=== PATIENT | male | born 1960 | race Caucasian/White ===

== ENCOUNTER 2016-09-13 | Inpatient (IN) | payer OTHER ==
--- NOTE | ~2016-09-13 | HP ---
Unit #: [id number] #: [id number] Patient: ROXANA MONTANEZ [id number] [place] [address] [id number] MR#: [id number] NAME: ROXANA MONTANEZ ROOM: P209 Age: 56 Sex: M Admission Date: 09/13/2016 : 1960 Attending Physician: Jerman Bean M.D. Admitting Physician: Jerman Bean M.D. Primary Care Physician: Generic Doctor Not In System HISTORY AND PHYSICAL HISTORY OF PRESENT ILLNESS Roxana is a 56 year old, admitted to [address] [place] [address] because of his abuse of alcohol. PAST MEDICAL HISTORY 1. Long history of alcohol abuse. 2. High blood pressure. 3. GERD. 4. Hyperlipidemia. PAST SURGICAL HISTORY Nothing reported. ALLERGIES No known drug allergies. SOCIAL HISTORY He does not smoke, drinks up to three fifths of liquor on a daily basis, and denies illicit drug use. FAMILY HISTORY Medically noncontributory. REVIEW OF SYSTEMS CONSTITUTIONAL: No fever or chills. HEENT: Denies any sore throat, ear pain or runny nose. CARDIOVASCULAR: Denies chest pain, irregular heart rhythm or palpitations. CHEST: Denies shortness of breath or cough. No hemoptysis. GASTROINTESTINAL: Denies nausea, vomiting, diarrhea or chronic constipation. ENDOCRINE: Denies history of increased thirst or urination. No recent significant weight loss or gain. GENITOURINARY: Denies dysuria, frequency, or hematuria. SKIN: Denies any rashes. HEMATOLOGIC: Denies history of increased bleeding or bruising. MUSCULOSKELETAL: Denies any hot, swollen joints. No generalized muscle pain. NEUROLOGIC: Denies problems with vision or speech. No frequent, severe headaches. No numbness, tingling or weakness in any extremities. Denies loss of bladder or bowel control. CURRENT MEDICATIONS 1. Detox protocol 2. Lipitor 10 mg daily Unit #: [id number] #: [id number] Patient: ROXANA MONTANEZ 3. Ibuprofen p.r.n. 4. Protonix 40 mg daily PHYSICAL EXAMINATION GENERAL: Alert, well-nourished, no apparent distress. VITAL SIGNS: Blood pressure 122/64, heart rate 96, respirations 16, and temperature 98.6. WEIGHT: 165. HEIGHT: 5 feet 8 inches. SKIN: Warm and dry without rash or lesion. HEENT: Normocephalic. TMs not viewed. Oral and nasal passages clear. Conjunctivae clear. PERRLA. EOMs intact. Bruised left orbit. The area has started to fade and yellow. NECK: Supple without lymphadenopathy or thyromegaly. HEART: Regular rate and rhythm without murmur. LUNGS: Clear. ABDOMEN: Soft, nontender. : Not done. EXTREMITIES: No evidence of cyanosis, clubbing or edema. Moves all without focal deficit. NEUROLOGICAL: Grossly within normal limits. Cranial Nerves: II: Visual jiang are intact. III, IV AND : Extraocular movements are intact. Pupils are equal, round and reactive to light. V: Facial sensation is grossly normal. VII: Facial movements and expression are normal. VIII: Auditory acuity grossly intact. IX, X: Uvula is midline. Phonation is normal. XI: Patient shrugs shoulders and turns head normally. XII: Tongue protrudes in the midline. Sensory and Motor Function: Sensory and motor sensation is grossly normal. Motor: moves all extremities well. Coordination: Gait is normal. Deep Tendon Reflexes: Intact. IMPRESSION Psychiatric admission. RECOMMENDATIONS Psychiatric, per psychiatrist. MEDICAL I see no contraindications to participating in facility's activities. MEDICAL PROGNOSIS Good. MEDICAL CONDITION Stable. Dictated by... Shiloh Almazan P.A.-C. for Margaret Ortega/lidia TD: 09/14/2016 12:29 JOB #: [id number] Unit #: [id number] #: [id number] Patient: ROXANA MONTANEZ HISTORY AND PHYSICAL Page 1 of 1 X Shiloh Almazan HISTORY AND PHYSICAL
--- NOTE | ~2016-09-13 | PA ---
Unit #: [id number] #: [id number] Patient: ROXANA MONTANEZ [id number] [place] [address] [id number] I MR#: [id number] NAME: ROXANA MONTANEZ ROOM: P209 Age: 56 Sex: M Admission Date: 09/13/2016 : 1960 Date of Assessment: 09/13/2016 Attending Physician: Jerman Bean M.D. Admitting Physician: Jerman Bean M.D. Primary Care Physician: Generic Doctor Not In System PSYCHIATRIC ASSESSMENT INFORMANTS The patient's reliability, fair; chart reliability, good. CHIEF COMPLAINT Alcohol withdrawal. HISTORY OF PRESENT ILLNESS Mr. Walsh is a 56-year-old male, presented with the above-mentioned complaint. The patient reported drinking one-fifth of vodka daily and reported currently having withdrawal symptoms. The patient reported that financial problem, job problems, feeling of hopelessness and worthlessness. The patient reported frequent awakening, sleeping 4 hours. The patient currently homeless. Denied any suicidal or homicidal ideation. Denied any psychotic symptom. Needing inpatient admission at this time for psychiatric stabilization. The patient reported alcohol use. No use of any street drugs. History of sobriety 8 months ago, last period of sobriety 4 years ago. The patient reported history of blackout, withdrawal symptom, but no HIV, hepatitis, or IV drug use. The patient reported withdrawal symptoms such as muscle cramping, poor concentration, sleep problem, tremor, unpleasant dream, poor appetite, restlessness. PAST PSYCHIATRIC HISTORY Remarkable for history of previous treatment for detox, details unknown at this time. FAMILY HISTORY AND SOCIAL HISTORY The patient is currently homeless, poor support system. No history of abuse. No legal problem. MEDICAL HISTORY Remarkable for history of hypertension. Musculoskeletal; muscle strength and tone, no atrophy or abnormal movement. Gait normal. MEDICATION HISTORY None. ALLERGIES No known drug allergies. SUBSTANCE ABUSE HISTORY Please see above. Unit #: [id number] #: [id number] Patient: ROXANA MONTANEZ REVIEW OF SYSTEMS HEENT: Eyes, clear. Ears, nose, mouth, and throat; clear. CARDIOVASCULAR: Unremarkable. RESPIRATORY: Unremarkable. GI: Unremarkable. : Unremarkable. SKIN: Unremarkable. LYMPH NODE: Unremarkable. NEUROLOGIC: Unremarkable. ENDOCRINE: Unremarkable. HEMATOLOGIC: Unremarkable. ALLERGIC/IMMUNOLOGIC: Unremarkable. MUSCULOSKELETAL: Muscle strength and tone, no atrophy or abnormal movement. Gait normal. MENTAL STATUS EXAMINATION CONSTITUTIONAL: Measurement of vital signs; temperature 97.7, pulse 97, respirations 20, blood pressure 122/65. Height 5 feet 8 inches, weight 165 pounds. GENERAL APPEARANCE: The patient dressed casually. The patient did not show any facial deformity. MUSCULOSKELETAL: Please see above. PSYCHIATRIC EXAMINATION Description of speech; regular rate, normal volume, normal articulation, coherent. Description of thought process, goal directed. Description of association, intact. Description of abnormal psychotic thinking; the patient denied any hallucination or delusions, but mood lability. Description of the patient's judgment; concerning everyday activity, poor. Social situation, poor. Concerning psychiatric condition, poor. Complete mental status examination; oriented in time, place, and person. Recent and remote memory, fair. Attention span and concentration, fair. Language, able to name object and repeat phrases. Fund of knowledge, aware of current event and passive vocabulary intact. Mood and affect, sad and dysphoric. Insight and judgment, fair to poor. ASSETS AND LIABILITIES Assets; the patient articulate, able to take care of his ADL. Liability; history of substance abuse, homelessness, poor support system. ADMITTING DIAGNOSES Psychiatric: Alcohol use disorder, severe, F10.20; mood disorder, not otherwise specified, F32.9. Secondary diagnosis: Deferred. Medical diagnosis: Hypertension. Stressors: Psychosocial stressors. PSYCHIATRIC PLAN AND TREATMENT GOAL 1. Advised to admit the patient on the inpatient unit. Provide safe, supportive, and structured environment. 2. Ordered labs; CBC, CMP, UA, and UDS. The patient to start with detox protocol, detox monitoring. Attend all the programing on the inpatient unit with group therapy, individual therapy, chemical dependency group. Treatment goal to attain euthymic mood, gain insight into his problem, and Unit #: [id number] #: [id number] Patient: ROXANA MONTANEZ learn coping skills. DISCHARGE PLAN Plan to stabilize the patient and consider followup in outpatient program. ESTIMATED LENGTH OF STAY 3 to 5 days. Dictated by... Jerman Bean M.D. RINA/daniela TD: 09/14/2016 23:09 JOB #: [id number] PSYCHIATRIC ASSESSMENT Page 1 of 1 X Jerman Bean MD PSYCHIATRIC ASSESSMENT
--- NOTE | ~2016-09-13 | DS ---
Unit #: [id number] #: [id number] Patient: ROXANA MONTANEZ [id number] [place] [address] [id number] MR#: [id number] NAME: ROXANA MONTANEZ ROOM: P209 Age: 56 Sex: M Admission Date: 09/13/2016 : 1960 Discharge Date: 09/15/2016 Attending Physician: Jerman Bean M.D. Primary Care Physician: Generic Doctor Not In System DISCHARGE SUMMARY REASON FOR ADMISSION Alcohol withdrawal. DIAGNOSTIC STUDIES LABORATORY RESULTS: Unremarkable except glucose 149. HOSPITAL COURSE The patient was admitted to inpatient unit on 09/13/2016 and discharged on 09/15/2016. The patient was treated with detox protocol, chemical dependency group, structured milieu, and psychoeducation. The patient was responsive to treatment. Subsequently, the patient was discharged with a plan to follow up in outpatient program. DISCHARGE MEDICATIONS Lipitor 10 mg daily for hyperlipidemia, Claritin 10 mg daily for allergies, Zestril 30 mg daily for hypertension, and Protonix 40 mg daily for GERD. DISCHARGE DIAGNOSES Psychiatric: 1. Alcohol use disorder, severe, F10.20. 2. Mood disorder, not otherwise specified, F32.9. Secondary diagnosis: Deferred. Medical diagnosis: Hypertension. Stressors: Psychosocial stressors. DISCHARGE INSTRUCTIONS The patient is to follow up in outpatient clinic as per social service liaison. CONDITION ON DISCHARGE The patient was pleasant and cooperative. Denied any psychotic symptom or any suicidal ideation. PROGNOSIS Guarded. DIET AND ACTIVITY As tolerated. Dictated by... Unit #: [id number] #: [id number] Patient: ROXANA MONTANEZ Margaret FalkC/daniela TD: 09/24/2016 23:22 JOB #: [id number] DISCHARGE SUMMARY Page 1 of 1 X Jerman Bean MD X DISCHARGE SUMMARY
--- NOTE | ~2016-09-13 | PN ---
Unit #: [id number] #: [id number] Patient: ROXANA MONTANEZ [id number] [facility] [address] [place] [address] [id number] I MR#: [id number] NAME: ROXANA MONTANEZ ROOM: P209 Age: 56 Sex: M Admission Date: 09/13/2016 : 1960 Attending Physician: Jerman Bean M.D. Admitting Physician: Jerman Bean M.D. Primary Care Physician: Generic Doctor Not In System [facility] PROGRESS NOTES DATE 09/14/2016 Here for a consultation followup DISCUSSION Mr. Montanez is a 56-year-old male seen on 09/14/2016. The patient continues to report anxious, nervous, sad, depressed, flat affect. The patient is currently having withdrawal symptoms. Vital signs are 97.7, 97, 20, 122/65. Complete review of systems unremarkable. MENTAL STATUS EXAMINATION General appearance, the patient dressed casually. Attention span and concentration fair. Oriented to time, place and person. Mood and affect sad, dysphoric. Speech monotone. Thought process concrete. The patient denied any thoughts of harming self or others but guarded. Recent and remote memory poor. Insight and judgement poor. DIAGNOSES Alcohol use disorder severe. Mood disorder NOS. ASSESSMENT/PLAN Advise to continue with current treatment on the inpatient unit. If needed consider further adjustment of medication. We will continue to follow, make further adjustments if needed. Dictated by... Margaret Falk/michelle TD: 09/16/2016 00:01 JOB #: [id number] Unit #: [id number] #: [id number] Patient: ROXANA MONTANEZ [facility] PROGRESS NOTES Page 1 of 1 X Jerman Bean MD PROGRESS NOTE
[2016-09-14 09:35] LABS: BASOPHIL% 0.6 % (0-2.5); EOSINOPHIL# 0.1 X10e3 (0-0.7); EOSINOPHIL% 2.3 % (0.0-7.0); HEMATOCRIT 41.7 % (38.0-50.0); HEMOGLOBIN 13.5 gm/dL (13.0-16.0); LYMPHOCYTE# 1.3 X10e3 (1.0-3.5); LYMPHOCYTE% 38.1 % (17.0-45.0); MEAN CELL VOLUME 93.5 FL (83-96); MEAN CORPUSCULAR HEMOGLOBIN 30.4 PG (28-34); MEAN CORPUSCULAR HGB CONC 32.5 g/dL (30-36); MEAN PLATELET VOLUME 7.7 FL (6.5-11.5); MONOCYTE# 0.4 X10e3 (0-1.0); MONOCYTE% 11.7 % (3.0-12.0); NEUTROPHIL# 1.6 X10e3 (1.5-7.1); NEUTROPHIL% 47.3 % (40-75); PLATELET COUNT 148 X10e3 (140-420); RED BLOOD COUNT 4.46 X10e (3.90-5.60); WHITE BLOOD COUNT 3.3 X10e3 (4.0-10.5)
[2016-09-14 09:40] LABS: DIFF IND NO
[2016-09-14 10:12] LABS: ALBUMIN SERUM 3.6 g/dL (3.5-5.0); BILIRUBIN,TOTAL 1.7 mg/dL (0.2-2.0); BUN/CREATININE RATIO 22.85; CALCIUM SERUM 8.7 mg/dL (8.4-10.2); CREATININE SERUM 0.7 mg/dL (0.6-1.4); GLOM FILT RATE Estimated 104.8 mL/min (>60); PROTEIN TOTAL SERUM 6.6 g/dL (6.0-8.3)
== END 2016-09-15 09:45 | disposition home or self-care (01) | DRG 897 ==
LOC: P2S 08:38
PROVIDERS: Psychiatry & Neurology Psychiatry
PROC: HZ2ZZZZ Detoxification Services for Substance Abuse Treatment (ICD-10-PCS; principal; 2016-09-13)
DX: F10.20 Alcohol dependence, uncomplicated (principal); F39 Unspecified mood [affective] disorder; I10 Essential (primary) hypertension; Z59.0 Homelessness; K21.9 Gastro-esophageal reflux disease without esophagitis; E78.5 Hyperlipidemia, unspecified
CPT/HCPCS: 80053; 85025; 86592